=== PATIENT | male | born 1990 | race Caucasian/White ===

== ENCOUNTER 2017-07-22 06:44 | Emergency (ER) | payer OTHER ==
[~2017-07-22] VITALS: Ht 193 cm; Wt 86.4 kg
[2017-07-22] MEDS ORDERED: PERCOCET 5MG/325MG TAB PO ONE (07:15)
--- NOTE | 2017-07-22 08:09 | REP ---
Right hand four views: The distal tip of the distal phalange of the middle finger is amputated. There is no other fracture or dislocation. Mineralization joint spaces are normal. There is no foreign body. Signed by Ari Ayon MD 07/22/2017 08:01 A
[2017-07-22] MEDS ORDERED: LIDOCAINE 1% MDV 20ML VIAL SC SCH (09:00)
[2017-07-22] MEDS ORDERED: LIDOCAINE 1% SDV INJ 30 ML VIAL SC SCH (09:00)
[2017-07-22] MEDS ORDERED: ONDANSETRON 4 MG ORAL DISINTEGRATING TAB (S0181) PO ONE (09:15)
[2017-07-22] MEDS ORDERED: KEFL500C17 PO (09:36)
[2017-07-22 09:45] VITALS: BP 115/67
[2017-07-22] MEDS ORDERED: CEPHALEXIN 500 MG CAP PO ONE (09:45)
== END 2017-07-22 09:58 | disposition home or self-care (01) ==
LOC: M ED 06:44
DX: S62.632A Displaced fracture of distal phalanx of right middle finger, initial encounter for closed fracture (principal); S61.210A Laceration without foreign body of right index finger without damage to nail, initial encounter; W29.3XXA Contact with powered garden and outdoor hand tools and machinery, initial encounter; Y92.099 Unspecified place in other non-institutional residence as the place of occurrence of the external cause; Y93.9 Activity, unspecified; Y99.9 Unspecified external cause status

== ENCOUNTER 2017-11-02 12:00 | Emergency (ER) | payer OTHER ==
[2017-11-02 13:07] LABS: BASO % 0.6 % (0.0-1.0); EOS # 0.1 10^3/uL (0.0-0.50); EOS % 1.4 % (0.0-3.0); HEMATOCRIT 44.8 % (42.0-52.0); HEMOGLOBIN 15.4 g/dl (14.0-18.0); IMMATURE GRANULOCYTE % 0.3 % (0-3.0); LYMPH # 2.3 10^3/uL (1.5-6.5); LYMPH % 32.2 % (24.0-44.0); MEAN CORPUSCULAR HEMOGLOBIN 29.5 pg (27.0-33.0); MEAN CORPUSCULAR HGB CONC 34.4 g/dl (32.0-36.5); MEAN CORPUSCULAR VOLUME 85.8 fl (80.0-96.0); MONO # 0.6 10^3/uL (0.0-0.8); MONO % 8.1 % (0.0-5.0); NEUTROPHILS # 4.2 10^3/uL (1.8-7.7); NEUTROPHILS % 57.4 % (36.0-66.0); PLATELET COUNT, AUTOMATED 274 10^3/uL (150-450); RED BLOOD COUNT 5.22 10^6/uL (4.30-6.10); RED CELL DISTRIBUTION WIDTH 11.2 % (11.5-14.5); WHITE BLOOD COUNT 7.3 10^3/uL (4.0-10.0)
[2017-11-02 13:38] LABS: ANION GAP 4 MEQ/L (8-16); BLOOD UREA NITROGEN 16 MG/DL (7-18); CALCIUM LEVEL 8.9 MG/DL (8.5-10.1); CARBON DIOXIDE LEVEL 29 MEQ/L (21-32); CHLORIDE LEVEL 109 MEQ/L (98-107); CPK CREATINE PHOSPHOKINASE 159 U/L (39-308); CREATININE FOR GFR 0.97 MG/DL (0.70-1.30); GLOMERULAR FILTRATION RATE > 60.0 (>60); GLUCOSE, FASTING 81 MG/DL (70-100); POTASSIUM SERUM 4.1 MEQ/L (3.5-5.1); SODIUM LEVEL 142 MEQ/L (136-145); TROPONIN I < 0.02 NG/ML (< 0.10)
[2017-11-02 13:41] LABS: D-DIMER QUANT < 270.0 ng/ml (<500)
[2017-11-02 13:44] LABS: CK-MB VALUE MASS < 1.0 NG/ML (<3.6); MB/CK RELATIVE INDEX 0.62 (< OR =4); THYROID STIMULATING HORMONE 0.972 uIU/ML (0.358-3.740)
== END 2017-11-02 14:25 | disposition home or self-care (01) ==
LOC: M ED 12:00
DX: R07.89 Other chest pain (principal); R00.2 Palpitations
CPT/HCPCS: 71046

== ENCOUNTER → 2022-11-17 | Outpatient (CLI) | payer OTHER ==
[~2022-11-17] MED LIST: KEFL500C17 PO
== END ==
LOC: M PLAIMG 12:45
PROVIDERS: ATTEND Physician Assistant
DX: G47.10 Hypersomnia, unspecified (principal); R53.83 Other fatigue; R40.0 Somnolence